=== PATIENT | female | born 1980 | race Caucasian/White ===

== ENCOUNTER 2021-09-28 08:58 | Outpatient (CLI) | payer BC, SELFPAY ==
[2021-09-28 14:49] LABS: Glucose* 91 mg/dL (60-115)
[2021-09-29 14:08] LABS: Follicle Stimulating Hormone 10.3 IU/L
[2021-09-29 14:27] LABS: Estradiol Premenol Female 59 pg/mL
[2021-09-30 16:42] LABS: Cardiolipin Antibody IgA < 10 APL (<=11); Cardiolipin Antibody IgG < 10 GPL (<=14); Cardiolipin Antibody IgM < 10 MPL (<=12)
[2021-10-04 00:29] LABS: Prothrombin Time 12.5 sec (12.0-15.5); dRVVT Screen 34 sec (33-44)
== END 2021-09-28 08:59 | disposition home or self-care (01) ==
PROVIDERS: PCP Family Medicine; Visit Provider Obstetrics & Gynecology
DX: N96 Recurrent pregnancy loss (principal)
CPT/HCPCS: 82670; 82947; 83001; 84443; 85610; 85613; 85730; 86147

== ENCOUNTER 2021-12-03 15:03 | Outpatient (CLI) | payer BC, SELFPAY ==
[2021-12-08 20:41] LABS: Progesterone, HPLC-MS/MS 8.41 ng/mL
== END 2021-12-03 15:04 | disposition home or self-care (01) ==
PROVIDERS: PCP Family Medicine; Visit Provider Obstetrics & Gynecology
DX: N96 Recurrent pregnancy loss (principal)
CPT/HCPCS: 84144

== ENCOUNTER 2023-12-25 11:03 | Outpatient (CLI) | payer BC, SELFPAY | END 2023-12-25 11:04 | disposition home or self-care (01) | LOC: NFLDREF 12-28 16:29 | PROVIDERS: PCP Family Medicine; Referring Provider Family Medicine; Visit Provider Physician Assistant | DX: Z01.419 Encounter for gynecological examination (general) (routine) without abnormal findings (principal); Z12.39 Encounter for other screening for malignant neoplasm of breast; Z13.6 Encounter for screening for cardiovascular disorders; Z13.1 Encounter for screening for diabetes mellitus | CPT/HCPCS: 80061; 82947; 84443 ==

== ENCOUNTER 2024-02-24 13:02 | Outpatient (CLI) | payer BC, SELFPAY ==
--- NOTE | 2024-02-24 13:00 | CRLHL7_ITS ---
For Patients: As a result of the Century Cures Act, medical imaging exams and procedure reports are released immediately into your electronic medical record. You may view this report before your referring provider. If you have questions, please contact your health care provider. BILATERAL SCREENING MAMMOGRAM WITH COMPUTER-AIDED DETECTION AND TOMOSYNTHESIS TECHNIQUE: CC and MLO views were obtained. These mammographic images have been obtained using full-field digital technique. These mammographic images were interpreted with the benefit of computer-aided detection. Breast Tomosynthesis was used in this interpretation. COMPARISON FILM: Baseline. FINDINGS: The breasts are heterogeneously dense, which may obscure small masses. IMPRESSION: There is no radiographic evidence for malignancy. ASSESSMENT: BI-RADS Category 1: Negative RECOMMENDATION: Routine screening mammogram in 1 year. A lay language report of this examination will be provided to the patient. Lasha rGimm M.D. Diagnostic Radiologist [email or web address] SP/Dictated by: Lasha Grimm MD @ 02/25/2024 9:06:00 AM (Electronically Signed)
== END 2024-02-24 13:03 | disposition home or self-care (01) ==
LOC: MAMMO 13:02
PROVIDERS: PCP Family Medicine; Visit Provider Physician Assistant
DX: Z12.31 Encounter for screening mammogram for malignant neoplasm of breast (principal); R92.333 Mammographic heterogeneous density, bilateral breasts
CPT/HCPCS: 77063; 77067

== ENCOUNTER 2024-12-31 09:20 | Outpatient (CLI) | payer OTHER, SELFPAY ==
[2025-01-01 21:39] LABS: HPV Source Cervix
[2025-01-13 13:57] LABS: Pap Test Digital Imaging Done
== END 2024-12-31 09:21 | disposition home or self-care (01) ==
PROVIDERS: PCP Family Medicine; Visit Provider Physician Assistant
DX: Z12.4 Encounter for screening for malignant neoplasm of cervix (principal)
CPT/HCPCS: 87624; 87625; 88141; 88142; 88175